=== PATIENT | female | born 1965 | race American Indian/Alaskan Native ===

== ENCOUNTER 2019-05-06 23:07 | Emergency (ER) | payer OTHER ==
[2019-05-06] MEDS ORDERED: PEPCID IV ONE (23:53)
[2019-05-06] MEDS ORDERED: BENADRYL IV ONE (23:53)
[2019-05-06] MEDS ORDERED: DECADRON IV ONE (23:53)
--- NOTE | 2019-05-07 | Emergency Department Report ---
HPI - General Chief Complaint: Allergic Reaction Time Seen by Provider: 05/06/19 23:51 - HPI HPI: Room 26 The patient is a 53-year-old female presenting with chief complaint of allergic reaction. The patient states just prior to arrival while cutting her grass she was bitten on her left upper extremity, right neck and right side by unknown insects. The patient states she began to have diffuse itching and tingling associated with feeling fatigue and shortness of breath. Location: [See above] Duration: [See above] Quality: [See above] Severity: [See above] Modifying factors: [see above] Context: [see above] Mode of transportation: [not driving] ED Past Medical Hx - Past Medical History Previous Medical History?: Yes Additional medical history: Cancer the patient remission x10 years, hernia, peptic ulcer disease, last endoscopy one year ago - Surgical History Past Surgical History?: Yes Additional Surgical History: Left mastectomy, partial hysterectomy - Family History Family history: no significant - Social History Smoking Status: Never Smoker Substance Use Type: None (denies illicit drug use), Alcohol (occasional) - Medications Home Medications: Home Medications Medication Instructions Recorded Confirmed Last Taken Type Ciprofloxacin HCl [Cipro] 500 mg PO Q12H #14 tab 09/11/13 Unknown Rx Hydrocodone Bit/Acetaminophen 1 each PO 09/11/13 09/11/13 Unknown History [Vicodin 5/500] Oxycodone HCl/Acetaminophen 1 each PO Q6HR PRN 09/11/13 09/11/13 Unknown History [Percocet 10-325 mg] EPINEPHrine [Epipen 2-Stephen] 0.3 mg IM ONCE PRN #0.6 ml 05/07/19 Unknown Rx Famotidine [Pepcid] 20 mg PO BID #6 tablet 05/07/19 Unknown Rx Prednisone [predniSONE 10 mg 10 mg PO .TAPER #1 tab.ds.pk 05/07/19 Unknown Rx (6-Day Pack, 21 Tabs)] diphenhydrAMINE [Benadryl CAP] 50 mg PO Q6HR #24 capsule 05/07/19 Unknown Rx ED Review of Systems ROS: Stated complaint: ALLERGIC REACTION Other details as noted in HPI Constitutional: malaise Eyes: eye pain Respiratory: shortness of breath Cardiovascular: denies: chest pain Endocrine: no symptoms reported Gastrointestinal: denies: abdominal pain Genitourinary: denies: dysuria Musculoskeletal: denies: back pain Skin: pruritus Neurological: denies: headache Physical Exam - Physical Exam Physical Exam: GENERAL: The patient is well-developed well-nourished female lying on stretcher exhibiting increased work of breathing. [] HEENT: Normocephalic. Atraumatic. Extraocular motions are intact. Patient has moist mucous membranes. NECK: Supple. No stridor CHEST/LUNGS: Clear to auscultation. There is increased work of breathing HEART/CARDIOVASCULAR: Regular. There is no tachycardia. There is no gallop rub or murmur. ABDOMEN: Abdomen is soft, nontender. Patient has normal bowel sounds. There is no abdominal distention. SKIN: There is no rash. There is no edema. There is no diaphoresis. NEURO: The patient is awake, alert, and oriented. The patient is cooperative. The patient has normal speech MUSCULOSKELETAL: There is no evidence of acute injury. ED Course - Reevaluation(s) Reevaluation #1: 05/07/19 01:54 Patient states she feels much improved ED Medical Decision Making - Lab Data Result diagrams: 05/07/19 00:33 05/07/19 00:33 - Differential Diagnosis acute allergic reaction Critical care attestation.: If time is entered above; I have spent that time in minutes in the direct care of this critically ill patient, excluding procedure time. ED Disposition Clinical Impression: Acute allergic reaction Disposition: DC-01 TO HOME OR SELFCARE Is pt being admited?: No Does the pt Need Aspirin: No Condition: Stable Instructions: Anaphylaxis (ED) Additional Instructions: Return to the emergency department immediately should you develop worsening symptoms, fever, inability to tolerate food or liquid or any other concerns. 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 Please follow up with her for further evaluation) Time of Disposition: 01:56
[2019-05-07 00:47] LABS: Basophils # (Auto) 0.1 K/mm3 (0.0-0.1); Basophils % (Auto) 0.9 % (0.0-1.8); Eosinophils # (Auto) 0.1 K/mm3 (0.0-0.4); Eosinophils % (Auto) 0.6 % (0.0-4.3); Hematocrit 40.5 % (30.3-42.9); Hemoglobin 13.9 gm/dl (10.1-14.3); Lymphocytes # (Auto) 3.8 K/mm3 (1.2-5.4); Lymphocytes % (Auto) 31.1 % (13.4-35.0); Mean Corpuscular HGB Conc 34 % (30-34); Mean Corpuscular Volume 92 fl (79-97); Monocytes # (Auto) 0.6 K/mm3 (0.0-0.8); Monocytes % (Auto) 5.1 % (0.0-7.3); Platelet Count 331 K/mm3 (140-440); Red Blood Count 4.43 M/mm3 (3.65-5.03); Red Cell Distribution Width 13.1 % (13.2-15.2)
[2019-05-07 01:01] LABS: INR 1.06 (0.87-1.13)
[2019-05-07 01:10] LABS: BUN/Creatinine Ratio 20; Blood Urea Nitrogen 16 mg/dL (7-17); Calcium 9.7 mg/dL (8.4-10.2); Hemolysis Index 78
--- NOTE | 2019-05-07 02:32 | XRay Report ---
SOFT TISSUE NECK, 2 VIEWS, 05/07/2019 INDICATION / CLINICAL INFORMATION: shortness of breath with allergic reaction. COMPARISON: None available. FINDINGS: The airway appears unremarkable. Normal appearance of the epiglottis. Pharyngeal soft tissues are wit hin normal limits. No radiopaque foreign object. Visualized lung apices are clear. Multilevel degenerative disc disease is noted in the mid cervical spine. IMPRESSION: No significant abnormality noted. Signer Name: Sagrario Gonzales MD Signed: 05/07/2019 1:27 AM Workstation Name: [id number]
[2019-05-07 06:10] VITALS: BP 136/74
== END 2019-05-07 02:00 | disposition home or self-care (01) ==
LOC: ED 23:07
DX: T78.40XA Allergy, unspecified, initial encounter (principal); Z90.711 Acquired absence of uterus with remaining cervical stump; Z90.12 Acquired absence of left breast and nipple; Z91.013 Allergy to seafood; X58.XXXA Exposure to other specified factors, initial encounter
CPT/HCPCS: 36415; 70360; 80048; 85025; 85610; 85730; 94640; 96374; 96375; 99284; J1100; J1200